=== PATIENT | female | born 1955 | race Caucasian/White ===

== ENCOUNTER 2020-10-28 15:16 | Outpatient (REF) | payer BC, SELFPAY ==
--- NOTE | ~2020-10-28 | MM_ITS ---
EXAMINATION: MM SCREENING DIGITAL BREAST TOMOSYNTHESIS, BILATERAL CLINICAL INFORMATION: Screening. Asymptomatic. The lifetime risk of breast cancer based on the Tyrer-Cuzick Model is 4%. COMPARISON: Mammography: 07/04/2019, 06/28/2018, 12/23/2017 TECHNIQUE: Digital breast tomosynthesis is performed in both the craniocaudal and mediolateral oblique views along with computer-aided detection (CAD). Synthesized 2D images are generated from the tomosynthesis. FINDINGS: The breasts are almost entirely fatty (ACR BI-RADS breast composition Category a). Background stromal markings are stable. There is no interval mass or architectural abnormality or abnormal calcifications. The axilla and skin contours are unremarkable. No significant changes. MM/MM tomosynthesis screening BI IMPRESSION: No mammographic evidence of malignancy. ASSESSMENT: BI-RADS 1: Negative RECOMMENDATION: Routine annual mammography screening. This patient's information was entered into a reminder system with a target due date for their next mammogram.
== END 2020-10-28 15:17 | disposition home or self-care (01) ==
LOC: HO.MAMMO 15:16
PROVIDERS: Visit Provider Internal Medicine
DX: Z12.31 Encounter for screening mammogram for malignant neoplasm of breast (principal)
CPT/HCPCS: 77063; 77067

== ENCOUNTER 2021-10-30 15:26 | Outpatient (REF) | payer BC, SELFPAY ==
--- NOTE | ~2021-10-30 | MM_ITS ---
EXAMINATION: MM SCREENING DIGITAL BREAST TOMOSYNTHESIS, BILATERAL CLINICAL INFORMATION: Screening. Asymptomatic. The lifetime risk of breast cancer based on the Tyrer-Cuzick Model is 4%. COMPARISON: Mammography: 10/28/2020, 07/04/2019, 06/28/2018 TECHNIQUE: Digital breast tomosynthesis is performed in both the craniocaudal and mediolateral oblique views along with computer-aided detection (CAD). Synthesized 2D images are generated from the tomosynthesis. Additional right MLO view is provided. FINDINGS: The breasts are almost entirely fatty (ACR BI-RADS breast composition Category a). There are no significant masses, abnormal calcifications, or other abnormalities. Background stromal markings are similar to prior studies. No developing density. The axilla are unremarkable. There are no significant changes. MM/MM tomosynthesis screening BI IMPRESSION: No mammographic evidence of malignancy. ASSESSMENT: BI-RADS 1: Negative RECOMMENDATION: Routine annual mammography screening. This patient's information was entered into a reminder system with a target due date for their next mammogram.
== END 2021-10-30 15:27 | disposition home or self-care (01) ==
LOC: HO.MAMMO 15:26
PROVIDERS: PCP Internal Medicine; Visit Provider Internal Medicine
DX: Z12.31 Encounter for screening mammogram for malignant neoplasm of breast (principal)
CPT/HCPCS: 77063; 77067

== ENCOUNTER 2021-11-07 07:50 | Outpatient (REF) | payer BC, SELFPAY ==
[2021-11-07 11:22] LABS: Alanine Aminotransferase 18 U/L (0-31); Albumin Level 4.2 g/dL (3.5-5.0); Alkaline Phosphatase 70 U/L (39-117); Anion Gap 17 (12-20); Aspartate Amino Transferase 20 U/L (5-31); Bilirubin Total 0.5 mg/dL (0.0-1.0); Blood Urea Nitrogen 12 mg/dL (9-16); Calcium 9.7 mg/dL (8.4-10.2); Carbon Dioxide 28 mmol/L (22-29); Chloride 100 mmol/L (96-108); Cholesterol 288 mg/dL; Estimated Glomerular Filt Rate > 60; Glucose Fasting 93 mg/dL (60-99); HDL Cholesterol 68 mg/dL; LDL Cholesterol Calculated 190 mg/dl; Potassium 3.7 mmol/L (3.3-5.1); Sodium 141 mmol/L (135-145); Total Protein 7.3 g/dL (6.5-8.0); Triglycerides 151 mg/dL
== END 2021-11-07 07:51 | disposition home or self-care (01) ==
LOC: HO.HMGCLDS 07:50
PROVIDERS: PCP Internal Medicine; Visit Provider Internal Medicine
DX: E78.2 Mixed hyperlipidemia (principal)
CPT/HCPCS: 36415; 80053; 80061

== ENCOUNTER 2021-11-09 15:33 | Outpatient (REF) | payer BC, SELFPAY ==
--- NOTE | ~2021-11-09 | XR_ITS ---
EXAMINATION: XR HAND, LEFT CLINICAL INFORMATION: Localized swelling, mass and lump left thumb COMPARISON: None TECHNIQUE: PA, lateral, and oblique views of the left hand. FINDINGS: The bones and soft tissues are normal. No fracture. Alignment is anatomic. Joint spaces are maintained. No erosions or soft tissue calcifications. XR/XR hand LT min 3V IMPRESSION: Normal left hand.
== END 2021-11-09 15:34 | disposition home or self-care (01) ==
LOC: HO.XRAY 15:33
PROVIDERS: PCP Internal Medicine; Visit Provider Internal Medicine
DX: R22.32 Localized swelling, mass and lump, left upper limb (principal)
CPT/HCPCS: 73130

== ENCOUNTER 2021-12-15 10:53 | Outpatient (REF) | payer BC, SELFPAY ==
--- NOTE | ~2021-12-15 | XR_ITS ---
EXAMINATION: XR HAND, LEFT CLINICAL INFORMATION: Pain COMPARISON: None TECHNIQUE: Four views of the left hand and left thumb. FINDINGS: No acute visible fracture or dislocation. Mild multi joint arthritic changes. Nonspecific calcific densities along the first proximal phalanx, possibly arthritic in origin. Joint spaces and alignment are otherwise maintained. Soft tissues are unremarkable. XR/XR hand LT min 3V IMPRESSION: 1. No acute visible fracture or dislocation. 2. Mild multi joint arthritic changes. 3. Nonspecific calcific densities along the first proximal phalanx, possibly arthritic in origin.
== END 2021-12-15 10:54 | disposition home or self-care (01) ==
LOC: HO.HOSX 10:53
PROVIDERS: Visit Provider Orthopaedic Surgery
DX: M79.642 Pain in left hand (principal)
CPT/HCPCS: 73130

== ENCOUNTER 2021-12-31 10:57 | Day surgery (SDC) | payer BC, SELFPAY ==
--- NOTE | 2021-12-31 10:00 | W.PM.OPN ---
Operative Note Operative Note Date of Service: 12/31/21 Narrative: Operative Note Preop diagnosis: 1. 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 same Procedure: 1. left thumb mucous cyst excision 2. left thumb DIP joint arthrotomy and excision of radial osteophyte. Surgeon: Sharmaine Lay MD Anesthesia: Digital block using 1% lidocaine with epinephrine Findings: mucous cyst, synovial rice bodies found and sent to pathology EBL: Less than 5 mL Tourniquet time: None Specimens: left thumb mucous cyst and synovial rice bodies Complications: None Disposition: Brought to recovery room in stable condition Plan: Follow-up for 7-10 days for wound check and suture removal Indications: The patient is 66 years old, with left thumb D IP joint osteoarthritis and dorsal thumb masses that have been unresponsive to nonoperative management. The risks and benefits of operative treatment including but not limited to risk of damage to blood vessels, nerves, tendons, infection, persistent pain, persistent symptoms, recurrence or possible need for additional surgery were discussed with the patient and the patient wishes to proceed with surgery. Procedure: Once consent was obtained a digital block was performed in the preop area using a combination of 1% lidocaine with epinephrine. The patient was then brought back to the operating suite and placed on the operative table in supine position. A tourniquet was applied to the proximal aspect of the left upper extremity and the limb was prepped and draped in a standard surgical fashion. A finger tourniquet was applied to the base of the thumb for few more than 30 minutes. Once assured that we had a good block, an L-shaped incision was made over the dorsal aspect of the left thumb distal phalanx. The incision was made through the skin to the subcutaneous tissues using a #15 blade. Careful dissection was made down to the level of the mucous cyst and extensor mechanism using iris scissors. there is a thickening of the tissues radial to the extensor tendon distal to the D IP joint, this also involved mucous cyst. This area was excised using a 15. Blade and tenotomy scissors. An arthrotomy was performed on the radial side of the extensor mechanism at the D IP joint. The periarticular osteophytes were excised using a rongeur. In addition to some clear viscous fluid consistent with a ganglion, once our arthrotomy was made we also removed some rice bodies associated with the synovium inside the D IP joint. This was also placed on the back table to be sent for histopathology. There was also a small mucous cyst just ulnar to the extensor tendon insertion. It was dissected free from the surrounding tissues and removed from the finger. Once satisfied, the wound was copiously irrigated with normal saline and hemostasis was obtained with a brief period of local pressure. The skin edges were reapproximated with some 5.0 Prolene suture material and a sterile dressing was applied. The patient appears to have tolerated the procedure well and with no complications. All digits were well vascularized at the conclusion of the case.
[2021-12-31 11:06] VITALS: BMI 31.2
[2021-12-31 11:10] VITALS: BP 152/74; PULSE 65; RESP 16; TEMP 36.4; O2SAT 97
[2021-12-31 14:06] VITALS: BP 161/84; PULSE 64; RESP 18; TEMP 37; O2SAT 98
== END 2021-12-31 14:31 | disposition home or self-care (01) ==
PROVIDERS: PCP Internal Medicine; Visit Provider Orthopaedic Surgery
PROC: (CPT 26160; principal; 2021-12-31 14:40)
DX: M67.442 Ganglion, left hand (principal); M24.0 Loose body in joint; K21.9 Gastro-esophageal reflux disease without esophagitis; F41.1 Generalized anxiety disorder; E78.5 Hyperlipidemia, unspecified; E66.9 Obesity, unspecified; Z68.31 Body mass index [BMI] 31.0-31.9, adult; Z87.891 Personal history of nicotine dependence; M19.042 Primary osteoarthritis, left hand
CPT/HCPCS: 26160; 88304; J0171

== ENCOUNTER 2022-11-09 07:30 | Outpatient (REF) | payer MEDICARE, SELFPAY ==
--- NOTE | ~2022-11-09 | MM_ITS ---
EXAMINATION: MM SCREENING DIGITAL BREAST TOMOSYNTHESIS, BILATERAL CLINICAL INFORMATION: Screening. Asymptomatic. The lifetime risk of breast cancer based on the Tyrer-Cuzick Model is 5%. COMPARISON: Mammography: 10/30/2021, 10/28/2020, 07/04/2019 TECHNIQUE: Digital breast tomosynthesis is performed in both the craniocaudal and mediolateral oblique views along with computer-aided detection (CAD). Synthesized 2D images are generated from the tomosynthesis. FINDINGS: The breasts are almost entirely fatty (ACR BI-RADS breast composition Category a). Background stromal markings are normal. No developing density or architectural abnormality. There are no significant masses, abnormal calcifications, or other abnormalities. The axilla and skin contours are unremarkable. MM/MM tomosynthesis screening BI IMPRESSION: No mammographic evidence of malignancy. ASSESSMENT: BI-RADS 1: Negative RECOMMENDATION: Routine annual mammography screening. This patient's information was entered into a reminder system with a target due date for their next mammogram.
== END 2022-11-09 07:31 | disposition home or self-care (01) ==
LOC: HO.MAMMO 07:30
PROVIDERS: PCP Internal Medicine; Visit Provider Internal Medicine
DX: Z12.31 Encounter for screening mammogram for malignant neoplasm of breast (principal)
CPT/HCPCS: 77063; 77067

== ENCOUNTER 2022-11-24 08:54 | Outpatient (REF) | payer MEDICARE, SELFPAY ==
[2022-11-24 12:12] LABS: Alanine Aminotransferase 23 U/L (0-31); Albumin Level 4.3 g/dL (3.5-5.0); Alkaline Phosphatase 68 U/L (39-117); Anion Gap 15 (12-20); Aspartate Amino Transferase 27 U/L (5-31); Bilirubin Total 0.5 mg/dL (0.0-1.0); Blood Urea Nitrogen 10 mg/dL (9-16); Calcium 10.3 mg/dL (8.4-10.2); Carbon Dioxide 29 mmol/L (22-29); Chloride 101 mmol/L (96-108); Cholesterol 287 mg/dL; Estimated Glomerular Filt Rate > 60; Glucose Fasting 101 mg/dL (60-99); HDL Cholesterol 67 mg/dL; LDL Cholesterol Calculated 173 mg/dl; Potassium 4.3 mmol/L (3.3-5.1); Sodium 141 mmol/L (135-145); Total Protein 7.6 g/dL (6.5-8.0); Triglycerides 236 mg/dL
== END 2022-11-24 08:55 | disposition home or self-care (01) ==
LOC: HO.HMGCLDS 08:54
PROVIDERS: PCP Internal Medicine; Visit Provider Internal Medicine
DX: E78.5 Hyperlipidemia, unspecified (principal); I10 Essential (primary) hypertension
CPT/HCPCS: 36415; 80053; 80061

== ENCOUNTER 2023-09-09 13:22 | Inpatient (IN) | payer MEDICARE, SELFPAY ==
--- NOTE | ~2023-09-09 | CT_ITS ---
EXAMINATION: CT abdomen pelvis w IV con CLINICAL INFORMATION: Reason for Exam upper abdominal pain COMPARISON: No prior CT available for comparison. TECHNIQUE: Multidetector volumetric imaging was performed from the superior aspect of the liver through the pubic symphysis 85 mL of Omnipaque 350 injected Sagittal and coronal reformatted images were obtained on the technologist's workstation. This CT examination was performed using dose optimization techniques as appropriate, variously including the following: *Automated exposure control *Adjustment of mA and/or kV according to patient size (this includes techniques or standardized protocols for targeted exams where dose is matched to indication/reason for exam; i.e. extremities or head) *Use of iterative reconstruction technique DLP: 581 mGy-cm FINDINGS: LOWER THORAX: Included lung bases are clear. HEPATOBILIARY: No focal hepatic lesions. No biliary ductal dilatation. GALLBLADDER: Gallbladder is distended, there are few gallstones. SPLEEN: Spleen is normal in size. PANCREAS: There is a peripancreatic fat stranding compatible with acute pancreatitis. No CT evidence of complication. No pseudocyst, aneurysm or thrombosis. STOMACH AND GASTROINTESTINAL TRACT: Stomach is grossly unremarkable. There is no bowel distention or thickening. No CT evidence of appendicitis. ADRENALS: No adrenal nodules. KIDNEYS/URETERS: No hydronephrosis, stones or solid mass lesions. URINARY BLADDER: Partially decompressed. PELVIC VISCERA: Unremarkable PERITONEUM: No free air or fluid. LYMPH NODES: No lymphadenopathy. VASCULAR:Abdominal aorta normal in size, no aneurysm found. BONES, ABDOMINAL WALL AND SOFT TISSUES: Degenerative osteoarthritic changes of the lumbar spine, symphysis pubis and hip joints. Age-appropriate changes of the spine and skeletal system, no destructive osteolytic or osteosclerotic bone lesion found CT/CT abdomen pelvis w IV con IMPRESSION: 1. Peripancreatic fat stranding compatible with ACUTE PANCREATITIS. No CT evidence of complication. 2. Distended gallbladder, small gallstones, Cholelithiasis.
--- NOTE | ~2023-09-09 | US_ITS ---
EXAMINATION: US ABDOMEN LIMITED CLINICAL INFORMATION: Pancreatitis, gallbladder stones on a recent CT. COMPARISON: CT abdomen/pelvis 09/09/2023. TECHNIQUE: Real-time imaging of the right upper quadrant abdominal viscera. FINDINGS: PANCREAS: Small amount of free fluid adjacent to the proximal pancreas. LIVER: Normal size, echogenicity and morphology. There is a 1.4 x 1.2 x 1.9 cm hypoechoic lesion in the left hepatic lobe. No intrahepatic biliary ductal dilatation. GALLBLADDER: Cholelithiasis. No evidence of gallbladder wall thickening. Negative Nance sign. COMMON BILE DUCT: Normal in caliber measuring 0.5 cm in diameter. FREE FLUID: As above, small amount of free fluid around the proximal pancreas. US/US abdomen limited IMPRESSION: 1. Small amount of free fluid surrounding the proximal pancreas in keeping with acute pancreatitis, better appreciated on recent CT. 2. Cholelithiasis but no evidence of acute cholecystitis. 3. Nonspecific 1.9 cm hypoechoic lesion in the left hepatic lobe. Recommend further characterization with outpatient dynamic abdominal MRI with and without intravenous contrast.
[2023-09-09 13:33] VITALS: BP 178/94; PULSE 85; RESP 18; TEMP 37; O2SAT 98; BMI 28.7
--- NOTE | 2023-09-09 13:34 | ED.GENADULT ---
HPI - General Adult General Chief complaint: General Medical Stated complaint: Upper Abd & Back Pain Time Seen by Provider: 09/09/23 16:02 Source: patient, RN notes reviewed and old records reviewed Mode of arrival: ambulatory Limitations: no limitations History of Present Illness HPI narrative: 68-year-old female with past medical history significant for hypertension, hyperlipidemia, GERD presents for evaluation of abdominal pain. Patient reports about 5 days of severe upper abdominal pain that radiates through to her back She reports the pain is worse when lying down She is unsure if the pain is related to eating because ?I have had no appetite and barely eaten in the last 3 days. ? She describes the pain as 7/10, stabbing in nature Patient denies any history abdominal surgeries Patient reports that about 1-1-1/2 weeks ago her primary doctor put her on hydrochlorothiazide 12.5 mg due to high blood pressure She is concerned this may have contributed to her symptoms Related Data Home Medications ?Medication ?Instructions ?Recorded ?Confirmed hydrochlorothiazide 12.5 mg tablet 12.5 mg DAILY 09/09/23 09/09/23 lisinopril 10 mg tablet 10 mg PO DAILY 09/09/23 09/09/23 omeprazole 40 mg capsule,delayed 40 mg DAILY 09/09/23 09/09/23 release polyethylene glycol 3350 17 17 g PO DAILY PRN Constipation 09/09/23 09/09/23 gram/dose oral powder Previous Rx's ?Medication ?Instructions ?Recorded sennosides 8.6 mg tablet (senna) 8.6 mg PO BEDTIME PRN constipation 11/09/21 90 days #90 tabs atorvastatin 10 mg tablet 10 mg PO BEDTIME 90 days #90 tabs 05/25/23 Allergies Allergy/AdvReac Type Severity Reaction Status Date / Time No Known Allergies Allergy Verified 09/09/23 13:35 Review of Systems Constitutional: Constitutional: Denies body ache(s), Denies chills and Denies fever(s) ENT: Denies sore throat Cardiovascular: Cardiovascular: Denies chest pain and Denies dyspnea Respiratory: Respiratory: Denies cough and Denies dyspnea Gastrointestinal: Gastrointestinal: Reports abdominal pain, Denies diarrhea, Reports nausea and Reports vomiting Genitourinary: Genitourinary: Denies dysuria Musculoskeletal: Musculoskeletal: Reports back pain Integumentary/Breasts: Skin/Breast: Denies rash PMFSH Past Medical History Medical History HTN (hypertension) Subcutaneous mass of left thumb Physical exam IGOR (generalized anxiety disorder) Class 1 obesity with body mass index (BMI) of 31.0 to 31.9 in adult Mixed hyperlipidemia Chronic GERD Surgical History History of tooth extraction Pilonidal cyst History of hysterectomy History of tonsillectomy Family History Family History Mother Diabetes Father Lung cancer, Onset Age: 76 Social History Social History Housing: House Alcohol intake: current Alcohol intake frequency: a few times a week Alcohol type: wine Patient Tobacco Use Status: Former Tobacco user Tobacco use type: Cigarette Smoked in Last 30 Days: No e-Cigarette/Vaping Use: Never Used Second Hand Smoke Exposure: No Use of substances other than those prescribed or required for medical reasons: No Advance Directives: No Advance Directives Information Provided: No Nutrition Risks: Acute nausea or vomiting x1 week and Poor intake 0-25% >4 days service: No Current occupational status: retired Current occupational exposures/hazards: No Cognitive needs: No Hearing needs: No Vision needs: No Physical Exam ED Vital Signs: Vital Signs - 24 hr 09/09/23 13:33 09/09/23 16:02 09/09/23 19:29 Temperature 98.6 F 98.1 F 98.2 F Pulse Rate 85 72 74 Respiratory Rate 18 14 14 Blood Pressure 178/94 H 157/82 H 143/79 H Pulse Oximetry 98 98 98 Oxygen Delivery Method Room Air Room Air Room Air BMI result Body Mass Index 28.7 Const General: healthy appearing, comfortable, no acute distress, alert and awake Nutritional Appearance: well nourished Orientation/consciousness: patient oriented x3 HENMT Head: Yes normocephalic and Yes atraumatic Eyes Eyelids: Yes eyelids normal Conjunctivae: conjunctivae normal Sclerae: sclerae normal Corneas: corneas normal Pupils: Equal, round and reactive pupils present EOM: EOMs intact bilaterally Neck Neck: Yes full ROM Resp Effort & Inspection: normal respiratory effort, able to speak in complete sentences and not labored Cardio Rate: regular rate Rhythm: regular rhythm GI Inspection: No distended Palpation (GI): Soft to palpation, not firm, Tenderness to palpation present (GI) in the epigastrum, in the RLQ and in the LUQ, no guarding and not rigid Auscultation: normoactive bowel sounds Skin General skin exam: elasticity normal Neuro General: patient oriented x3 Cranial nerves: Yes Equal, round and reactive pupils present and Yes Bilaterally intact EOM present Cognition (Neuro): normal cognition Extrem Other: Moving all extremities well without any obvious deformities Course Course Course Narrative: RME performed by Xiao Avalos PA-C. Patient is a 68 year old assigned female at presenting to the emergency department with epigastric and back pain. Detailed physical exam and review of systems are deferred to the steel erector. Labs and swabs ordered. Patient placed back in the waiting room pending room availability and results. Medications Administered Generic Name Dose Route Start Last Admin Trade Name Freq PRN Reason Stop Dose Admin Atorvastatin Calcium 10 mg 09/09/23 21:15 09/09/23 22:24 Atorvastatin Calcium 10 Mg Tablet PO 10 mg BEDTIME CONCHITA Administration Enoxaparin Sodium 40 mg 09/09/23 22:00 09/09/23 22:24 Enoxaparin Sodium 40 Mg/0.4 Ml Syringe SUBCUT 40 mg Q24H CONCHITA Administration Potassium Chloride/Dextrose/Sod Cl 40 meq in 1,000 mls @ 150 mls/hr 09/09/23 16:45 09/09/23 16:46 Kcl 40 Meq In 5% Dex/0.9% Sod IVCONT 150 mls/hr .Q6H40M CONCHITA Administration Lactated Ringer's 1,000 mls @ 100 mls/hr 09/09/23 21:15 09/09/23 22:18 Lr IVCONT Not Given .Q10H CONCHITA Discontinued Medications Generic Name Dose Route Start Last Admin Trade Name Freq PRN Reason Stop Dose Admin Magnesium Sulfate 2 gm in 50 mls @ 25 mls/hr 09/09/23 16:13 09/09/23 22:17 Magnesium Sulfate/H2o IV 09/09/23 18:12 Infused ONCE ONE Infusion Sodium Chloride 1,000 mls @ 999 mls/hr 09/09/23 20:15 09/09/23 21:17 Ns IV 09/09/23 21:15 Infused .Q1H1M CONCHITA Infusion Iohexol 100 ml 09/09/23 17:10 09/09/23 17:10 Iohexol 350 Mg/Ml 100 Ml Infus..Btl IV 09/09/23 17:11 85 ml ONCE ONE Administration Potassium Chloride 40 meq 09/09/23 21:12 09/09/23 22:24 Potassium Chloride Packet 20 Meq Packet PO 09/09/23 21:13 40 meq ONCE ONE Administration Medical Decision Making Medical Decision Making [facility] Narrative: 68-year-old female past medical history as documented above presents for evaluation of upper abdominal pain with decreased appetite over the last 5 days. She was started on hydrochlorothiazide about 7 days ago per her report. Given upper abdominal pain that radiates through to the back acute pancreatitis is high differential. However, also differential is biliary colic, cholelithiasis, acute cholecystitis, GERD, peptic ulcer disease, gastric perforation. Patient has a leukocytosis to 14.3 K with a left shift. She has a mild normocytic anemia. Denies any black or bloody stool. Most recent comparisons are from 4 years ago and this appears to be slightly below her most recent hemoglobin hematocrit 13.7 and 40.8. Again, this was from January of 2020. Chemistries are significant for sodium of 122, potassium 2.3, chloride of 74. She has further electrolyte abnormalities calcium 10.3 and magnesium of 1.2. This is likely due to decreased oral intake as well as diuretic use. Plan to treat the multiple electrolyte abnormalities with 40 mEq of IV potassium mixed and D5 NS to be given at 150 mL/hr Differential Diagnosis Differential Diagnoses: The differential diagnosis associated with the presentation includes See above Admission/Observation Consideration of admission/observation: Escalation of care including admission/observation considered Patient will likely require admission due to significant electrolyte abnormalities and inability tolerate p.o. Lab Data [facility] Lab Attestation statement: I reviewed the patient's lab results. See above, notably leukocytosis with left shift. Multiple electrolyte abnormalities 09/09/23 14:45 09/09/23 21:43 Labs: Lab Results 09/09/23 09/09/23 Range/Units 14:45 19:31 WBC 14.3 H (4.8-10.8) X10*3/uL RBC 3.80 L (4.20-5.50) X10*6/uL Hgb 11.8 L (12.0-16.0) g/dl Hct 31.7 L (37.0-47.0) % MCV 83.4 (80.0-98.0) fL MCH 31.1 (27.0-33.0) pg MCHC 37.2 H (31.0-35.0) g/dl RDW 11.1 (11.0-16.0) % Plt Count 276 (160-400) X10*3/uL MPV 8.0 L (9.4-12.3) fL Immature Gran % (Auto) 0.5 H (0.0-0.4) % Neut % (Auto) 77.8 H (45-73) % Lymph % (Auto) 13.5 L (20-40) % Branch % (Auto) 7.6 (2-11) % Eos % (Auto) 0.5 (0-4) % Baso % (Auto) 0.1 (0-2) % Lymph # (Auto) 1.9 (1.2-4.9) X10*3/uL Branch # (Auto) 1.1 (0.1-1.2) X10*3/uL Eos # (Auto) 0.1 (0.0-0.4) X10*3/uL Baso # (Auto) 0.0 (0.0-0.2) X10*3/uL Abs Immat Gran (auto) 0.07 H (0.00-0.03) X10*3/uL Absolute Neuts (auto) 11.1 H (2.0-8.3) x10*3/uL Absolute Nucleated RBC 0.000 (0.0-0.012) X10*3/uL Nucleated RBC % (auto) 0.0 (0.0-0.2) /100WBC Sodium 122 L (135-145) mmol/L Potassium 2.3 L* (3.3-5.1) mmol/L Chloride 74 L D (96-108) mmol/L Carbon Dioxide 36 H (22-29) mmol/L Anion Gap 14 (12-20) BUN 10 (9-16) mg/dL Creatinine 0.56 (0.5-1.4) mg/dL Estim Creat Clear Calc 84.2 Estimated GFR > 60 Random Glucose 88 (60-115) mg/dL Calcium 10.3 H (8.4-10.2) mg/dL Magnesium 1.2 L* (1.6-2.6) mg/dL Total Bilirubin 0.6 (0.0-1.0) mg/dL AST 28 (5-31) U/L ALT 19 (0-31) U/L Alkaline Phosphatase 85 (39-117) U/L Troponin I High Sens < 2.7 (<3.5-17.0) ng/L Total Protein 7.7 (6.5-8.0) g/dL Albumin 4.2 (3.5-5.0) g/dL Lipase 172 H (8-78) U/L Urine Color Yellow Urine Appearance Clear Urine pH 7.0 (5.0-9.0) Ur Specific [place] >= 1.030 H (1.005-1.025) Urine Protein Negative (Neg-Trace) mg/dL Urine Glucose (UA) Negative (Negative) mg/dL Urine Ketones 40 (Negative) mg/dL Urine Blood Negative (Negative) Urine Nitrite Negative (Negative) Ur Leukocyte Esterase Negative (Negative) Ethyl Alcohol < 10 mg/dL Influenza Type A (PCR) NEGATIVE (Negative) Influenza Type B (PCR) NEGATIVE (Negative) RSV RNA Qual (PCR) NEGATIVE (Negative) SARS-CoV-2 RNA (RT-PCR) NEGATIVE (Negative) Independent Interpretation I performed an independent interpretation of an: CT Scan (Agree with Radiology interpretation) Radiology Impression Discussion of test interpretation with radiology: I have reviewed the radiologist's reading. (Findings consistent with acute pancreatitis) Discharge Plan Discharge Clinical Impression: Acute hypokalemia, Hypomagnesemia, Acute hyponatremia, Acute pancreatitis Patient Disposition: Admitted As Inpatient
--- NOTE | 2023-09-09 13:35 | ECG_ITS ---
Test Reason : EPIGASTRIC PAIN Blood Pressure : / mmHG Vent. Rate : 078 BPM Atrial Rate : 078 BPM P-R Int : 178 ms QRS Dur : 098 ms QT Int : 380 ms P-R-T Axes : 044 -15 013 degrees QTc Int : 433 ms Normal sinus rhythm Incomplete right bundle branch block Moderate voltage criteria for LVH, may be normal variant ( R in aVL , John product ) Nonspecific ST abnormality Abnormal ECG No previous ECGs available Referred By: Xiao Avalos Electronically Signed By:CHARLIE NELSON MD
[2023-09-09 14:51] LABS: MANUAL DIFF FLAG NO
[2023-09-09 14:57] LABS: Basophils Percent Auto 0.1 % (0-2); Eosinophils Absolute Auto 0.1 X10*3/uL (0.0-0.4); Eosinophils Percent Auto 0.5 % (0-4); Hematocrit 31.7 % (37.0-47.0); Hemoglobin 11.8 g/dl (12.0-16.0); Imm Gran Abs Auto 0.07 X10*3/uL (0.00-0.03); Imm Gran Pct Auto 0.5 % (0.0-0.4); Lymphocytes Absolute Auto 1.9 X10*3/uL (1.2-4.9); Lymphocytes Percent Auto 13.5 % (20-40); Mean Corpuscular HGB Conc 37.2 g/dl (31.0-35.0); Mean Corpuscular Hemoglobin 31.1 pg (27.0-33.0); Mean Corpuscular Volume 83.4 fL (80.0-98.0); Monocytes Absolute Auto 1.1 X10*3/uL (0.1-1.2); Monocytes Percent Auto 7.6 % (2-11); Neutrophils Absolute Auto 11.1 x10*3/uL (2.0-8.3); Neutrophils Percent Auto 77.8 % (45-73); Platelet Count 276 X10*3/uL (160-400); Red Cell Distribution Width 11.1 % (11.0-16.0); White Blood Count 14.3 X10*3/uL (4.8-10.8)
[2023-09-09 15:22] LABS: Troponin-I High Sensitivity < 2.7 ng/L (<3.5-17.0)
[2023-09-09 15:37] LABS: Alanine Aminotransferase 19 U/L (0-31); Albumin Level 4.2 g/dL (3.5-5.0); Alkaline Phosphatase 85 U/L (39-117); Anion Gap 14 (12-20); Aspartate Amino Transferase 28 U/L (5-31); Bilirubin Total 0.6 mg/dL (0.0-1.0); Blood Urea Nitrogen 10 mg/dL (9-16); Calcium 10.3 mg/dL (8.4-10.2); Carbon Dioxide 36 mmol/L (22-29); Chloride 74 mmol/L (96-108); Creatinine Clr Calc Pharmacy 84.2; Estimated Glomerular Filt Rate > 60; Glucose Random 88 mg/dL (60-115); Magnesium 1.2 mg/dL (1.6-2.6); Potassium 2.3 mmol/L (3.3-5.1); Sodium 122 mmol/L (135-145); Total Protein 7.7 g/dL (6.5-8.0)
[2023-09-09 15:42] LABS: Influenza A PCR NEGATIVE (Negative); Influenza B PCR NEGATIVE (Negative); Resp Syncy Virus RNA Qual PCR NEGATIVE (Negative); SARS COV2 PCR INHOUSE NEGATIVE (Negative)
[2023-09-09 16:02] VITALS: BP 157/82; PULSE 72; RESP 14; TEMP 36.7; O2SAT 98
[2023-09-09] MEDS: Magnesium Sulfate/H2O 2 GM/50 ML PIGGYBACK IV (16:42)
[2023-09-09] MEDS: KCl 40 mEq in 5% Dex/0.9% Sod 40 MEQ/1,000 ML IV.SOLN 150 MEQ IVCONT (16:46)
[2023-09-09 16:53] LABS: Lipase 172 U/L (8-78)
[2023-09-09] MEDS: iohexoL 350 MG/ML 100 ML INFUS..BTL IV (17:10)
[2023-09-09 19:29] VITALS: BP 143/79; PULSE 74; RESP 14; TEMP 36.8; O2SAT 98
[2023-09-09 19:38] LABS: Color Urine Yellow; Glucose Urine UA Negative (Negative); Leukocyte Esterase Urine Negative (Negative); Nitrite Urine Negative (Negative); Specific Gravity - Urine >= 1.030 (1.005-1.025); Urine Blood Negative (Negative); Urine Ketones 40 mg/dL (Negative); Urine Protein Negative (Neg-Trace)
[2023-09-09 19:40] LABS: Appearance Urine Clear
[2023-09-09] MEDS: 0.9 % Sodium Chloride 1,000 ML 999 ML IV (20:16)
[2023-09-09 21:02] LABS: Ethanol < 10 mg/dL
--- NOTE | 2023-09-09 21:16 | PM.IMHP ---
History of Present Illness Date of Service: 09/09/23 Attending physician on admission: Willam Perez Chief Complaint: Abdominal pain Pt is a 68-year-old female with a PMH significant for?HTN, HLD, GERD, and chronic constipation who presents to the ED for evaluation of central, epigastric abdominal pain radiating to the back x5 days. Has had some nausea with one episode of vomiting a day or two after symptom onset. Pt has also had decreased p.o. intake of both fluids and solids, especially in the last 3 days. Pt admits to drinking 3-4 glasses of wine daily. Has never had similar symptoms before. Denies fever, chills. No chest pain/pressure or palpitations. Denies SOB. Pt recently started 1.5 weeks ago on hydrochlorothiazide for HTN by her PCP. Pt also notes had a long history of chronic constipation since childhood. He is also recently started polyethylene glycol and sennosides. Last bowel movement 5 days prior on Tuesday. In the ED pt was afebrile but slightly hypertensive up to 178/94, vitals otherwise WNL. Labs were significant for leukocytosis of 14.3, sodium 122, potassium 2.3, chloride 74, bicarb 36, magnesium 1.2, and lipase 172. UA negative for UTI. Ethyl alcohol level undetectable. CT?of abdomen and pelvis found peripancreatic fat stranding compatible with acute pancreatitis with no evidence of complication. Also found distended gallbladder with small gallstones. EKG demonstrated normal sinus rhythm without evidence of significant ST elevations or depressions. Pt was treated with magnesium sulfate, potassium chloride IV, and IVF. Pt will be admitted to the hospital for treatment and further evaluation of acute alcoholic pancreatitis and electrolyte abnormalities. Review of Systems Review of Systems: Epigastric abdominal pain radiating to back Nausea, vomiting Anorexia Chronic constipation Denies fever, chills No chest pain/pressure, palpitations Denies shortness of breath [facility] Medical History HTN (hypertension) Subcutaneous mass of left thumb Physical exam IGOR (generalized anxiety disorder) Class 1 obesity with body mass index (BMI) of 31.0 to 31.9 in adult Mixed hyperlipidemia Chronic GERD Family History Mother Diabetes Father Lung cancer, Onset Age: 76 Surgical History History of tooth extraction Pilonidal cyst History of hysterectomy History of tonsillectomy Social History Housing: House Alcohol intake: current Alcohol intake frequency: a few times a week Alcohol type: wine Patient Tobacco Use Status: Former Tobacco user Tobacco use type: Cigarette Smoked in Last 30 Days: No e-Cigarette/Vaping Use: Never Used Second Hand Smoke Exposure: No Use of substances other than those prescribed or required for medical reasons: No Advance Directives: No Advance Directives Information Provided: No service: No Current occupational status: retired Current occupational exposures/hazards: No Cognitive needs: No Hearing needs: No Vision needs: No Meds Allergies Allergy/AdvReac Type Severity Reaction Status Date / Time No Known Allergies Allergy Verified 09/09/23 13:35 Active Medications: Current Medications Acetaminophen (Acetaminophen 325 Mg Tablet) 650 mg PO Q6H PRN PRN Reason: Pain, Mild (Pain Scale 1-3) Atorvastatin Calcium (Atorvastatin Calcium 10 Mg Tablet) 10 mg PO BEDTIME [facility] Enoxaparin Sodium (Enoxaparin Sodium 40 Mg/0.4 Ml Syringe) 40 mg SUBCUT Q24H [facility] Potassium Chloride/Dextrose/Sod Cl (Kcl 40 Meq In 5% Dex/0.9% Sod) 40 meq in 1,000 mls @ 150 mls/hr IVCONT .Q6H40M [facility] Last Admin: 09/09/23 16:46 Dose: 150 mls/hr Lactated Ringer's (Lr) 1,000 mls @ 100 mls/hr IVCONT .Q10H [facility] Lisinopril (Lisinopril 10 Mg Tablet) 10 mg PO DAILY [facility]; Protocol Melatonin (Melatonin 3 Mg Tablet) 6 mg PO BEDTIME PRN PRN Reason: Insomnia Omeprazole (Omeprazole 40 Mg Capsule.Dr) 40 mg PO DAILY [facility] Ondansetron HCl (Ondansetron Hcl 4 Mg/2 Ml Vial) 4 mg IVPUSH Q8H PRN PRN Reason: Nausea and Vomiting Polyethylene Glycol (Polyethylene Glycol 3350 17 Gm Powd.Pack) 17 gm PO DAILY PRN PRN Reason: Constipation Senna (Sennosides 8.6 Mg Tablet) 8.6 mg PO BEDTIME PRN PRN Reason: constipation Sodium Chloride (0.9 % Sodium Chloride Flush 3 Ml Syringe) 3 ml IVFLUSH QSHIFT [facility] Home Medications ?Medication ?Instructions ?Recorded ?Confirmed ?Last Taken ?Type hydrochlorothiazide 12.5 mg tablet 12.5 mg DAILY 09/09/23 09/09/23 Unknown History lisinopril 10 mg tablet 10 mg PO DAILY 09/09/23 09/09/23 Unknown History omeprazole 40 mg capsule,delayed 40 mg DAILY 09/09/23 09/09/23 Unknown History release polyethylene glycol 3350 17 17 g PO DAILY PRN Constipation 09/09/23 09/09/23 Unknown History gram/dose oral powder Physical Exam Vital Signs and Narrative: Vital Signs: Last Vital Signs Temp 98.2 F 09/09/23 19:29 Pulse 74 09/09/23 19:29 Resp 14 09/09/23 19:29 BP 143/79 H 09/09/23 19:29 Pulse Ox 98 09/09/23 19:29 O2 Del Method Room Air 09/09/23 19:29 BMI result Body Mass Index 28.7 General: AOx3, no acute distress Resp: CTA bilaterally CVS: S1, S2, RRR GI: +BS, no distention, epigastric and LUQ tenderness Skin: Warm, dry Neuro: Cranial nerves II-XII grossly intact bilaterally. Motor grossly intact bilaterally Extremities: No edema Psych: Appropriate affect Results Labs 09/09/23 14:45 09/09/23 14:45 Labs: Laboratory Results - last 24 hr 09/09/23 09/09/23 14:45 19:31 MCV 83.4 MCH 31.1 MCHC 37.2 H RDW 11.1 Plt Count 276 MPV 8.0 L Immature Gran % (Auto) 0.5 H Neut % (Auto) 77.8 H Lymph % (Auto) 13.5 L [place] % (Auto) 7.6 Eos % (Auto) 0.5 Baso % (Auto) 0.1 Lymph # (Auto) 1.9 [place] # (Auto) 1.1 Eos # (Auto) 0.1 Baso # (Auto) 0.0 Abs Immat Gran (auto) 0.07 H Absolute Neuts (auto) 11.1 H Absolute Nucleated RBC 0.000 Nucleated RBC % (auto) 0.0 Anion Gap 14 Estim Creat Clear Calc 84.2 Estimated GFR > 60 Random Glucose 88 Calcium 10.3 H Magnesium 1.2 L* Total Bilirubin 0.6 AST 28 ALT 19 Alkaline Phosphatase 85 Troponin I High Sens < 2.7 Total Protein 7.7 Albumin 4.2 Lipase 172 H Urine Color Yellow Urine Appearance Clear Urine pH 7.0 Ur Specific [place] >= 1.030 H Urine Protein Negative Urine Glucose (UA) Negative Urine Ketones 40 Urine Blood Negative Urine Nitrite Negative Ur Leukocyte Esterase Negative Ethyl Alcohol < 10 Influenza Type A (PCR) NEGATIVE Influenza Type B (PCR) NEGATIVE RSV RNA Qual (PCR) NEGATIVE SARS-CoV-2 RNA (RT-PCR) NEGATIVE Imaging Radiologist's Impressions: Impressions Abdomen/Pelvis CT 09/09/23 17:15 IMPRESSION: 1. Peripancreatic fat stranding compatible with ACUTE PANCREATITIS. No CT evidence of complication. 2. Distended gallbladder, small gallstones, Cholelithiasis. Assessment and Plan (1) Acute pancreatitis: Status: Acute (2) Acute hyponatremia: Status: Acute (3) Hypomagnesemia: Status: Acute (4) Acute hypokalemia: Status: Acute Plan Pt is a 68-year-old female with a PMH significant for?HTN, HLD, GERD, and chronic constipation who presents to the ED for evaluation of central, epigastric abdominal pain radiating to the back x5 days. Pt will be admitted to the hospital for treatment and further evaluation of acute alcoholic pancreatitis and electrolyte abnormalities. Acute pancreatitis Patient with central abdominal pain radiating to back, elevated lipase, CT with evidence of acute pancreatitis Likely secondary to alcohol use Patient with long history of at least 3-4 glasses of wine daily Patient be made NPO, given IVF, analgesics for pain management Monitor on CIWA Alcohol cessation has been encouraged Advance diet as tolerated Hyponatremia Sodium 122 time of presentation Likely secondary to reduced p.o. intake, recently starting hydrochlorothiazide Patient receiving IVF Hold hydrochlorothiazide Follow BMP Hypokalemia Potassium 2.3 time presentation Likely secondary to reduced p.o. intake, recently starting hydrochlorothiazide Patient received IV potassium supplementation in ED Will give potassium chloride p.o. Hold hydrochlorothiazide Follow BMP, supplement as necessary Hypomagnesemia Magnesium 1.2 at time of presentation Likely secondary to reduced p.o. intake, recently starting hydrochlorothiazide Patient received Mag 2 g IV in ED Hold hydrochlorothiazide Follow BMP, supplement as necessary Leukocytosis Likely reactionary No evidence of bacterial infection, no indication for antibiotics at this time Follow CBC HTN Continue lisinopril Hold hydrochlorothiazide HLD Continue statin GERD Continue PPI Chronic constipation Continue polyethylene glycol and sennosides p.r.n. Full Code Attending:?Dr. Marcum DVT Prophylaxis: Lovenox Pt will require a hospitalization of at least two nights for treatment of?acute alcoholic pancreatitis and multiple electrolyte abnormalities. Patient will require hospitalization for bowel rest, IV hydration, close monitoring of electrolytes, and supplementation has indicated. Quality Stroke Does the patient have a stroke diagnosis?: No VTE Prior VTE?: No VTE Risk Level:: Medical - moderate - high VTE Device Contraindication: Treatment Not Indicated VTE Drug Contraindication: N/A - Med Ordered
--- NOTE | 2023-09-09 21:21 | PHA.MEDREC ---
Pharmacy Consult ? Medication Reconciliation Pharmacy has completed the medication reconciliation.
[2023-09-09 22:01] VITALS: BP 142/75; PULSE 72; RESP 14; TEMP 36.8; O2SAT 99
[2023-09-09 22:03] LABS: Anion Gap 16 (12-20); Blood Urea Nitrogen 6 mg/dL (9-16); Calcium 10.1 mg/dL (8.4-10.2); Carbon Dioxide 31 mmol/L (22-29); Chloride 83 mmol/L (96-108); Creatinine Clr Calc Pharmacy 79.9; Estimated Glomerular Filt Rate > 60; Glucose Random 88 mg/dL (60-115); Magnesium 2.5 mg/dL (1.6-2.6); Potassium 2.4 mmol/L (3.3-5.1); Sodium 128 mmol/L (135-145)
[2023-09-09] MEDS: Enoxaparin Sodium 40 MG/0.4 ML SYRINGE SUBCUT (22:24)
[2023-09-09] MEDS: Potassium Chloride Packet 20 MEQ PACKET 40 MEQ PO (22:24)
[2023-09-09] MEDS: Atorvastatin Calcium 10 MG TABLET PO (22:24)
[2023-09-10] VITALS (8 sets, daily range): BP systolic 117–164; BP diastolic 68–86; PULSE 67–82; RESP 12–19; TEMP 36–36.7; O2SAT 95–99
[2023-09-10] MEDS: Acetaminophen 325 MG TABLET 650 MG PO (02:23)
[2023-09-10] MEDS: Melatonin 3 MG TABLET 6 MG PO (02:23)
[2023-09-10 05:59] LABS: Hematocrit 31.7 % (37.0-47.0); Hemoglobin 11.6 g/dl (12.0-16.0); Mean Corpuscular HGB Conc 36.6 g/dl (31.0-35.0); Mean Corpuscular Volume 84.8 fL (80.0-98.0); Mean Platelet Volume 8.2 fL (9.4-12.3); Platelet Count 316 X10*3/uL (160-400); Red Blood Count 3.74 X10*6/uL (4.20-5.50); Red Cell Distribution Width 11.3 % (11.0-16.0); White Blood Count 10.8 X10*3/uL (4.8-10.8)
[2023-09-10 06:16] LABS: Anion Gap 16 (12-20); Blood Urea Nitrogen 5 mg/dL (9-16); Calcium 9.7 mg/dL (8.4-10.2); Carbon Dioxide 28 mmol/L (22-29); Chloride 89 mmol/L (96-108); Creatinine Clr Calc Pharmacy 78.5; Estimated Glomerular Filt Rate > 60; Glucose Random 86 mg/dL (60-115); Magnesium 2.2 mg/dL (1.6-2.6); Potassium 3.1 mmol/L (3.3-5.1); Sodium 130 mmol/L (135-145)
[2023-09-10] MEDS: Sennosides 8.6 MG TABLET PO (07:35)
[2023-09-10] MEDS: Omeprazole 40 MG CAPSULE.DR PO (07:35)
--- NOTE | 2023-09-10 08:34 | PC.NURSE ---
assumed care of pt at 0700. pt a&o x4, calm, and cooperative. pt initially grumpy due to broken TV in pt room. pt moved to new room with working TV and in much better mood. pt on bedside monitor, NSR. 20G IV to RAC, patent. KCL running per aug. due to pt movement, IV keeps pausing thus delaying complete infusion. pt medicated per aug with senna due to constipation and no BM x1 week. pt sts this is normal for her. pt otherwise NPO. ultrasound complete. pt resting quietly on stretcher in no apparent distress. rr even/unlabored. awaiting bed assignment. call duncan within reach. plan of care ongoing.
[2023-09-10] MEDS: Lactated Ringers 1,000 ML 100 ML IVCONT ×2 (08:50→18:41)
[2023-09-10 09:13] LABS: Alanine Aminotransferase 16 U/L (0-31); Alkaline Phosphatase 83 U/L (39-117); Aspartate Amino Transferase 20 U/L (5-31); Bilirubin Direct 0.2 mg/dL (0.0-0.5); Bilirubin Total 0.5 mg/dL (0.0-1.0); Lactate Dehydrogenase 175 U/L (122-220); Lipase 76 U/L (8-78); Total Protein 7.5 g/dL (6.5-8.0); Triglycerides 85 mg/dL (<150)
[2023-09-10] MEDS: lisinopriL 10 MG TABLET PO (09:57)
[2023-09-10] MEDS: KCl 40 mEq in 5% Dex/0.9% Sod 40 MEQ/1,000 ML IV.SOLN 150 MEQ IVCONT (13:27)
--- NOTE | 2023-09-10 15:11 | P.PNIM_ITS ---
Subjective Subjective Date of Service: 09/10/23 Interval History: seen and examined this morning follow up for pancreatitis still with epigastric abdominal pain no nausea or vomiting Review of Systems Review of Systems: Yes all other systems are reviewed and are negative Constitutional Constitutional: Denies chills and Denies fever(s) Cardiovascular Cardiovascular: Denies chest pain, Denies palpitations and Denies dyspnea Respiratory Respiratory: Denies cough and Denies dyspnea Endocrine Endocrine: Denies palpitations Physical Exam 2 Vital Signs: Vital Signs: Last Vital Signs Temp 96.8 F 09/10/23 13:53 Pulse 68 09/10/23 13:53 Resp 14 09/10/23 13:53 BP 145/78 H 09/10/23 13:53 Pulse Ox 98 09/10/23 13:53 O2 Del Method Room Air 09/10/23 13:53 BMI result Body Mass Index 28.7 Const: General: cooperative, comfortable, no acute distress, alert and awake Nutritional Appearance: average body habitus Orientation/consciousness: p atient oriented x3 Resp: Effort & Inspection: normal respiratory effort, able to speak in complete sentences, no respiratory distress and no use of accessory muscles Cardio: Rate: regular rate GI: Other: Epigastric tenderness, positive bowel sounds, no guarding, no rebound, no distention Palpation (GI): Soft to palpation Neuro: General: patient oriented x3, moves all extremities and CN's II-XI intact bilaterally Objective Data Active Medications Acetaminophen (Acetaminophen 325 Mg Tablet) 650 mg PO Q6H PRN PRN Reason: Pain, Mild (Pain Scale 1-3) Last Admin: 09/10/23 02:23 Dose: 650 mg Documented By: KASEY Atorvastatin Calcium (Atorvastatin Calcium 10 Mg Tablet) 10 mg PO BEDTIME [facility] Last Admin: 09/09/23 22:24 Dose: 10 mg Documented By: KASEY Enoxaparin Sodium (Enoxaparin Sodium 40 Mg/0.4 Ml Syringe) 40 mg SUBCUT Q24H [facility] Last Admin: 09/09/23 22:24 Dose: 40 mg Documented By: KASEY Lactated Ringer's (Lr) 1,000 mls @ 100 mls/hr IVCONT .Q10H [facility] Last Admin: 09/10/23 08:50 Dose: 100 mls/hr Documented By: MARY Potassium Chloride/Dextrose/Sod Cl (Kcl 40 Meq In 5% Dex/0.9% Sod) 40 meq in 1,000 mls @ 150 mls/hr IVCONT .Q6H40M [facility] Last Admin: 09/10/23 13:27 Dose: 150 mls/hr Documented By: MARY Lisinopril (Lisinopril 10 Mg Tablet) 10 mg PO DAILY [facility]; Protocol Last Admin: 09/10/23 09:57 Dose: 10 mg Documented By: MARY Melatonin (Melatonin 3 Mg Tablet) 6 mg PO BEDTIME PRN PRN Reason: Insomnia Last Admin: 09/10/23 02:23 Dose: 6 mg Documented By: KASEY Morphine Sulfate (Morphine Sulfate 2 Mg/Ml Cartridge) 2 mg IVPUSH Q4H PRN; Protocol PRN Reason: Pain, Severe (Pain Scale 7-10) Omeprazole (Omeprazole 40 Mg Capsule.Dr) 40 mg PO DAILY@0630 [facility] Last Admin: 09/10/23 07:35 Dose: 40 mg Documented By: MARY Ondansetron HCl (Ondansetron Hcl 4 Mg/2 Ml Vial) 4 mg IVPUSH Q8H PRN PRN Reason: Nausea and Vomiting Polyethylene Glycol (Polyethylene Glycol 3350 17 Gm Powd.Pack) 17 gm PO DAILY PRN PRN Reason: Constipation Senna (Sennosides 8.6 Mg Tablet) 8.6 mg PO BEDTIME PRN PRN Reason: constipation Last Admin: 09/10/23 07:35 Dose: 8.6 mg Documented By: MARY Sodium Chloride (0.9 % Sodium Chloride Flush 3 Ml Syringe) 3 ml IVFLUSH QSHIFT [facility] Last Admin: 09/10/23 07:18 Dose: Not Given Documented By: MARY Non-Admin Reason: Med Not Available Labs 09/10/23 05:53 09/10/23 05:53 Labs: Laboratory Results - last 24 hr 09/09/23 09/09/23 09/09/23 14:45 19:31 21:43 MCV MCH MCHC RDW Plt Count MPV Absolute Nucleated RBC Nucleated RBC % (auto) Anion Gap 14 16 Estim Creat Clear Calc 84.2 79.9 Estimated GFR > 60 > 60 Random Glucose 88 88 Calcium 10.3 H 10.1 Magnesium 1.2 L* 2.5 Total Bilirubin 0.6 Direct Bilirubin AST 28 ALT 19 Alkaline Phosphatase 85 Lactate Dehydrogenase Troponin I High Sens < 2.7 Total Protein 7.7 Albumin 4.2 Triglycerides Lipase 172 H Urine Color Yellow Urine Appearance Clear Urine pH 7.0 Ur Specific [place] >= 1.030 H Urine Protein Negative Urine Glucose (UA) Negative Urine Ketones 40 Urine Blood Negative Urine Nitrite Negative Ur Leukocyte Esterase Negative Ethyl Alcohol < 10 Influenza Type A (PCR) NEGATIVE Influenza Type B (PCR) NEGATIVE RSV RNA Qual (PCR) NEGATIVE SARS-CoV-2 RNA (RT-PCR) NEGATIVE 09/10/23 05:53 MCV 84.8 MCH 31.0 MCHC 36.6 H RDW 11.3 Plt Count 316 MPV 8.2 L Absolute Nucleated RBC 0.000 Nucleated RBC % (auto) 0.0 Anion Gap 16 Estim Creat Clear Calc 78.5 Estimated GFR > 60 Random Glucose 86 Calcium 9.7 Magnesium 2.2 Total Bilirubin 0.5 Direct Bilirubin 0.2 AST 20 ALT 16 Alkaline Phosphatase 83 Lactate Dehydrogenase 175 Troponin I High Sens Total Protein 7.5 Albumin 4.0 Triglycerides 85 Lipase 76 Urine Color Urine Appearance Urine pH Ur Specific [place] Urine Protein Urine Glucose (UA) Urine Ketones Urine Blood Urine Nitrite Ur Leukocyte Esterase Ethyl Alcohol Influenza Type A (PCR) Influenza Type B (PCR) RSV RNA Qual (PCR) SARS-CoV-2 RNA (RT-PCR) Assessment and Plan (1) Acute pancreatitis: Status: Acute (2) Acute hyponatremia: Status: Acute (3) Acute hypokalemia: Status: Acute Plan This is a 68-year-old female with a PMH significant for?HTN, HLD, GERD, and chronic constipation who presents to the ED for evaluation of central, epigastric abdominal pain radiating to the back x5 days found to have acute pancreatitis Acute pancreatitis Likely secondary to alcohol use. TG low; ct scan shows gallstones, but no cbd dilation, LFTs all wnl continue IVF, pain medication Monitor on Alcohol cessation has been encouraged Advance diet as tolerated Hyponatremia. improving Likely secondary to reduced p.o. intake, recently starting hydrochlorothiazide continue IVF Hold hydrochlorothiazide Follow BMP Hypokalemia Likely secondary to reduced p.o. intake, recently starting hydrochlorothiazide s/p IV and PO potassium Hold hydrochlorothiazide Follow BMP, supplement as necessary Hypomagnesemia resolved with replacement Leukocytosis due to pancreatitis. resolved. HTN Continue lisinopril Hold hydrochlorothiazide HLD Continue statin GERD Continue PPI Chronic constipation Continue polyethylene glycol and sennosides p.r.n. Full Code Attending:?Dr. Grier DVT Prophylaxis: Lovenox Patient requires ongoing inpatient hospitalization for management of acute pancreatitis Quality Stroke Does the patient have a stroke diagnosis?: No VTE Prior VTE?: No VTE Risk Level:: Medical - moderate - high VTE Device Contraindication: Treatment Not Indicated VTE Drug Contraindication: N/A - Med Ordered
--- NOTE | 2023-09-10 16:45 | PC.NURSE ---
pt has ambulated to bathroom on own multiple times to urinate throughout day. pt sts still has not had a BM even though medicated with senna per mar.
[2023-09-10] MEDS: Atorvastatin Calcium 10 MG TABLET PO (19:56)
[2023-09-10] MEDS: polyethylene glycoL 3350 17 GM POWD.PACK PO (20:01)
[2023-09-10] MEDS: Enoxaparin Sodium 40 MG/0.4 ML SYRINGE SUBCUT (22:28)
[2023-09-11] MEDS: Lactated Ringers 1,000 ML 100 ML IVCONT (03:33)
[2023-09-11 03:37] VITALS: BP 147/73; PULSE 56; RESP 16; TEMP 36.4; O2SAT 97
[2023-09-11] MEDS: Omeprazole 40 MG CAPSULE.DR PO (05:58)
[2023-09-11 07:28] VITALS: BP 127/78; PULSE 69; RESP 18; TEMP 36.4; O2SAT 98
[2023-09-11] MEDS: lisinopriL 10 MG TABLET PO (08:50)
--- NOTE | 2023-09-11 10:43 | P.DS_ITS ---
DS: Providers Provider Date of Service: 09/11/23 Date of admission: 09/09/23 21:06 Date of discharge: 09/11/23 Primary care physician: Mary Tao MD Attending physician on discharge: [facility] Discharging clinician: Crystal Del Angel DS: Diagnosis Discharge Diagnosis (1) Acute pancreatitis: Status: Acute (2) Acute hyponatremia: Status: Acute (3) Acute hypokalemia: Status: Acute DS: Summary Hospital Course Hospital Course: From H&P on the day of admission Pt is a 68-year-old female with a PMH significant for?HTN, HLD, GERD, and chronic constipation who presents to the ED for evaluation of central, epigastric abdominal pain radiating to the back x5 days. Has had some nausea with one episode of vomiting a day or two after symptom onset. Pt has also had decreased p.o. intake of both fluids and solids, especially in the last 3 days. Pt admits to drinking 3-4 glasses of wine daily. Has never had similar symptoms before. Denies fever, chills. No chest pain/pressure or palpitations. Denies SOB. Pt recently started 1.5 weeks ago on hydrochlorothiazide for HTN by her PCP. Pt also notes had a long history of chronic constipation since childhood. He is also recently started polyethylene glycol and sennosides. Last bowel movement 5 days prior on Tuesday. In the ED pt was afebrile but slightly hypertensive up to 178/94, vitals otherwise WNL. Labs were significant for leukocytosis of 14.3, sodium 122, potassium 2.3, chloride 74, bicarb 36, magnesium 1.2, and lipase 172. UA negative for UTI. Ethyl alcohol level undetectable. CT?of abdomen and pelvis found peripancreatic fat stranding compatible with acute pancreatitis with no evidence of complication. Also found distended gallbladder with small gallstones. EKG demonstrated normal sinus rhythm without evidence of significant ST elevations or depressions. Pt was treated with magnesium sulfate, potassium chloride IV, and IVF. Pt will be admitted to the hospital for treatment and further evaluation of acute alcoholic pancreatitis and electrolyte abnormalities. Acute pancreatitis Likely secondary to alcohol use. TG low; ct scan shows gallstones, but no cbd dilation no RUQ pain, LFTs all within normal limits. TG 85. She as treated with bowel rest, IVF, pain medication. Her pain gradually improved and her diet was gradually advanced. She is currently tolerating a regular diet. She was monitored on the CIWA scale and showed no evidence of alcohol withdrawal. Limiting alcohol intake was discussed. Hyponatremia. Likely secondary to reduced p.o. intake, recently starting hydrochlorothiazide. HCTZ was placed on hold. Sodium improved. Hypokalemia Likely secondary to reduced p.o. intake, recently starting hydrochlorothiazide. She was treated with IV and PO potassium. Hold hydrochlorothiazide. Improved with replacement Hypomagnesemia resolved with replacement HTN HCTZ was stopped due to above electrolyte abnormalities. dose of lisinopril increased to 20 mg Time Attestation Discharge Coordination Time (in mins): 35 Quality: Safe Use of Opioids Does Pt have an Active Cancer Diagnosis on the Problem List?: No Quality: Stroke Does the patient have a stroke diagnosis?: No Physical Exam Vital Signs: Vital Signs: Last Vital Signs Temp 97.6 F 09/11/23 07:28 Pulse 69 09/11/23 07:28 Resp 18 09/11/23 07:28 BP 127/78 09/11/23 07:28 Pulse Ox 98 09/11/23 07:28 O2 Del Method Room Air 09/11/23 07:28 BMI result Body Mass Index 28.7 Const: General: cooperative, comfortable, no acute distress, alert and awake Nutritional Appearance: average body habitus Orientation/consciousness: patient oriented x3 Resp: Effort & Inspection: normal respiratory effort, able to speak in complete sentences, no respiratory distress and no use of accessory muscles Cardio: Rate: regular rate GI: Inspection: No distended Palpation (GI): Soft to palpation, nontender and no guarding Neuro: General: patient oriented x3, moves all extremities and CN's II-XI intact bilaterally Extrem: General: Yes no pedal edema DS: Data Data Completed and Pending Labs on day of discharge: Laboratory Results - last 24 hr 09/11/23 06:03 Hold Purple Top SEE NOTE Discharge Plan Discharge Anticipated Discharge Date/Time: 09/11/23 15:36 Patient Disposition: Home, Self-Care Discharge Diagnosis: acute pancreatitis Hyponatremia, hypokalemia, hypomagnesemia Referrals: Mayr Tao MD [Primary Care Provider] - 1 Week Discharge Medications: New lisinopril 20 mg tablet 20 mg PO DAILY 90 Days Qty: 90 0RF Continued atorvastatin 10 mg tablet 10 mg PO BEDTIME 90 Days Qty: 90 1RF omeprazole 40 mg capsule,delayed release(DR/EC) 40 mg DAILY polyethylene glycol 3350 17 gram/dose powder 17 g PO DAILY PRN (Reason: Constipation) sennosides [senna] 8.6 mg tablet 8.6 mg PO BEDTIME PRN (Reason: constipation) 90 Days Qty: 90 0RF Discontinued lisinopril 10 mg tablet 10 mg PO DAILY hydrochlorothiazide 12.5 mg tablet 12.5 mg DAILY Discharge Orders: Discharge Order (Routine); Ordered 09/11/23 Ordered By: Crystal Del Angel Activity on Discharge: As tolerated Stand Alone Forms: Patient Portal Discharge page Print Language: Turkish Care Plan Goals: see below Health Concerns: acute pancreatitis low sodium, low magnesium, low potassium Plan of Treatment: Electrolyte abnormalities resolved with replacement Stop taking HCTZ dose of lisinopril has been increased reduce alcohol intake follow up with PCP Assessment: see discharge summary
[2023-09-11 11:08] VITALS: BP 146/74; PULSE 68; RESP 18; TEMP 36.3; O2SAT 99
[2023-09-11 11:20] LABS: Anion Gap 13 (12-20); Blood Urea Nitrogen 3 mg/dL (9-16); Calcium 9.8 mg/dL (8.4-10.2); Carbon Dioxide 24 mmol/L (22-29); Chloride 98 mmol/L (96-108); Creatinine Clr Calc Pharmacy 81.3; Estimated Glomerular Filt Rate > 60; Glucose Random 102 mg/dL (60-115); Potassium 2.8 mmol/L (3.3-5.1); Sodium 132 mmol/L (135-145)
[2023-09-11] MEDS: Potassium Chloride/H20 10 MEQ/100 ML PIGGYBACK 100 MEQ IV ×2 (11:45→12:57)
[2023-09-11] MEDS: Potassium Chloride Packet 20 MEQ PACKET 60 MEQ PO (12:00)
[2023-09-11] MEDS: 0.9 % Sodium Chloride Flush 3 ML SYRINGE IVFLUSH (15:05)
--- NOTE | 2023-09-11 15:26 | MHC.CM.PN ---
PT REPORTS SHE LIVES WITH HER AND IS INDEPENDENT SHE HAS NO DME AND NO SERVICES PT SAYS SHE HAS A HCP AT HOME NAMING HER HER AGENT, COPY REQUESTED PCP: MICKIE CABALLERO DELIVERED DCP: HOME NO SERVICES VIA PRIVATE TRANSPORT
[2023-09-11 15:34] LABS: Potassium 4.5 mmol/L (3.3-5.1)
== END 2023-09-11 15:55 | disposition home or self-care (01) | DRG 439 ==
LOC: HO.ED 20:12 → HO.EDOVER 21:24 → HO.IMC 09-10 15:16
PROVIDERS: Internal Medicine; Physician Assistant; Physician Assistant Medical; Admitting Provider Student in an Organized Health Care Education/Training Program; Emergency Provider Emergency Medicine; PCP Internal Medicine; Visit Provider Physician Assistant Medical
DX: K85.20 Alcohol induced acute pancreatitis without necrosis or infection (principal); E87.1 Hypo-osmolality and hyponatremia; I10 Essential (primary) hypertension; K21.9 Gastro-esophageal reflux disease without esophagitis; K59.09 Other constipation; E78.2 Mixed hyperlipidemia; E83.42 Hypomagnesemia; E87.6 Hypokalemia; T50.2X5A Adverse effect of carbonic-anhydrase inhibitors, benzothiadiazides and other diuretics, initial encounter; Z20.822 Contact with and (suspected) exposure to COVID-19; Z79.899 Other long term (current) drug therapy
CPT/HCPCS: 0241U; 36415; 74177; 76705; 80048; 80053; 80076; 80307; 81003; 83615; 83690; 83735; 84132; 84478; 84484; 85025; 85027; 93005; 99285; J1650; J3475; J3480; J7120; Q9967

== ENCOUNTER → 2023-09-09 13:35 | Outpatient (BNV) | payer MEDICARE, SELFPAY | PROVIDERS: PCP Internal Medicine; Visit Provider Internal Medicine Cardiovascular Disease | DX: R94.31 Abnormal electrocardiogram [ECG] [EKG] (principal) | CPT/HCPCS: 93010 ==

== ENCOUNTER → 2023-09-09 21:06 | Outpatient (BNV) | payer MEDICARE, SELFPAY | PROVIDERS: Admitting Provider Student in an Organized Health Care Education/Training Program; Emergency Provider Emergency Medicine; PCP Internal Medicine; Visit Provider Physician Assistant Medical | DX: K85.90 Acute pancreatitis without necrosis or infection, unspecified (principal); E87.1 Hypo-osmolality and hyponatremia; E87.6 Hypokalemia | CPT/HCPCS: 99223; 99232; 99239 ==

== ENCOUNTER 2023-11-15 07:16 | Outpatient (REF) | payer MEDICARE, SELFPAY ==
--- NOTE | ~2023-11-15 | MM_ITS ---
EXAMINATION: MM SCREENING DIGITAL BREAST TOMOSYNTHESIS, BILATERAL CLINICAL INFORMATION: Screening. Asymptomatic. COMPARISON: Mammography: This study is compared with prior exams dating back to 2020. TECHNIQUE: Digital breast tomosynthesis is performed in both the craniocaudal and mediolateral oblique views along with computer-aided detection (CAD). Synthesized 2D images are generated from the tomosynthesis. FINDINGS: The breasts are almost entirely fatty (ACR BI-RADS breast composition Category a). There are no significant masses, abnormal calcifications, or other abnormalities. MM/MM tomosynthesis screening BI IMPRESSION: No mammographic evidence of malignancy. ASSESSMENT: BI-RADS BI-RADS 1 - Negative RECOMMENDATION: Routine annual mammography screening. 1 year F/U This examination should not preclude the clinical evaluation of a suspicious palpable abnormality. This patient's information was entered into a reminder system with a target due date for their next mammogram.
== END 2023-11-15 07:17 | disposition home or self-care (01) ==
LOC: HO.MAMMO 07:16
PROVIDERS: PCP Internal Medicine; Visit Provider Internal Medicine
DX: Z12.31 Encounter for screening mammogram for malignant neoplasm of breast (principal)
CPT/HCPCS: 77063; 77067

== ENCOUNTER → 2023-11-15 07:30 | Outpatient (BNV) | payer MEDICARE, SELFPAY | PROVIDERS: PCP Internal Medicine; Visit Provider Radiology Diagnostic Radiology | DX: Z12.31 Encounter for screening mammogram for malignant neoplasm of breast (principal) | CPT/HCPCS: 77063; 77067 ==

== ENCOUNTER 2023-12-01 09:50 | Outpatient (REF) | payer MEDICARE, SELFPAY ==
[2023-12-01 14:46] LABS: Cholesterol 161 mg/dL (<200); HDL Cholesterol 69 mg/dL (>40); LDL Cholesterol Calculated 80 mg/dL (<100); Triglycerides 63 mg/dL (<150)
== END 2023-12-01 09:51 | disposition home or self-care (01) ==
LOC: HO.CHCLDS 09:50
PROVIDERS: Visit Provider Internal Medicine
DX: E78.00 Pure hypercholesterolemia, unspecified (principal)
CPT/HCPCS: 36415; 80061

== ENCOUNTER 2023-12-05 09:58 | Outpatient (REF) | payer MEDICARE, SELFPAY ==
[2023-12-06 07:43] LABS: ~HepC Num1 0.09 S/CO (0.00-0.79); ~Hepatitis C Antibody Nonreactive (Nonreactive)
== END 2023-12-05 09:59 | disposition home or self-care (01) ==
LOC: HO.CHCLDS 09:58
PROVIDERS: Visit Provider Internal Medicine
DX: Z00.00 Encounter for general adult medical examination without abnormal findings (principal)
CPT/HCPCS: 36415; 86803

== ENCOUNTER 2024-11-20 07:22 | Outpatient (REF) | payer MEDICARE, SELFPAY | END 2024-11-20 07:23 | disposition home or self-care (01) | LOC: HO.MAMMO 07:22 | PROVIDERS: PCP Internal Medicine; Visit Provider Internal Medicine | DX: Z12.31 Encounter for screening mammogram for malignant neoplasm of breast (principal) | CPT/HCPCS: 77063; 77067 ==

== ENCOUNTER → 2024-11-20 07:30 | Outpatient (BNV) | payer MEDICARE, SELFPAY | PROVIDERS: PCP Internal Medicine; Visit Provider Internal Medicine | DX: Z12.31 Encounter for screening mammogram for malignant neoplasm of breast (principal) | CPT/HCPCS: 77063; 77067 ==

== ENCOUNTER 2025-04-08 08:11 | Outpatient (AMB) | payer MEDICARE, SELFPAY ==
--- NOTE | 2025-04-08 08:17 | MHC.OFFWIV ---
Intake Vital Signs 04/08/25 08:21 Height 5 ft Weight 138 lb BMI 26.9 BP 144/88 H Blood Pressure Location Rt brachial Position Sitting Pulse 68 Pulse Source Pulse Oximeter Temp 97.9 F Temp Source Oral Pulse Oximetry (%) 96 Oxygen Delivery Method Room Air Intake Visit Reasons: EP cough/chest cold 3 weeks Intake Note: Patient presents c/o chest congestion, SOB/wheezing, cough x3 weeks Patient Tobacco Use Status: Former Tobacco user Allergies No Known Allergies Allergy (Verified 04/08/25 08:22) Medication List - Last Reconciled 04/08/25 by Sabrina Arroyo NP atorvastatin 10 mg PO BEDTIME 90 days azithromycin 500 mg PO DAILY 3 days benzonatate 100 mg PO BID lisinopril 20 mg PO DAILY 90 days omeprazole 40 mg PO DAILY 90 days polyethylene glycol 3350 17 grams PO DAILY PRN prednisone 50 mg PO DAILY 5 days sennosides (senna) 8.6 mg PO BEDTIME PRN 90 days Do you need a note to return to daycare/school/sports/work: No HPI HPI Comments History of Present Illness Details 70 y/o female patient presents to the walk-in clinic with complaints of chest congestion, cough, and shortness of breath/wheezing for the past 3 weeks. Reports taking OTC remedies without relief. Denies any recent sick contacts. Denies fever, chills, nausea, or vomiting. Denies any history of COPD or asthma. [facility] Medical History (Updated 04/08/25 @ 08:45 by Sabrina Arroyo NP) Wheezy bronchitis HTN (hypertension) Subcutaneous mass of left thumb Physical exam IGOR (generalized anxiety disorder) Class 1 obesity with body mass index (BMI) of 31.0 to 31.9 in adult Mixed hyperlipidemia Chronic GERD Surgical History History of tooth extraction Pilonidal cyst History of hysterectomy History of tonsillectomy Family History Mother Diabetes Father Lung cancer, Onset Age: 76 Social History Household Members: Spouse Housing: House Do you presently have visiting nurse or other home services: No Alcohol intake: current Alcohol intake frequency: a few times a week Alcohol type: wine Patient Tobacco Use Status: Former Tobacco user Tobacco use type: Cigarette e-Cigarette/Vaping Use: Never Used Second Hand Smoke Exposure: No service: No Current occupational status: retired Current occupational exposures/hazards: No Cognitive needs: No Hearing needs: No Vision needs: No Review of Systems Const All systems reviewed & are unremarkable except as noted in HPI and below Physical Exam Vital Signs: Last Vital Signs Temp 97.9 F 04/08/25 08:21 Pulse 68 04/08/25 08:21 BP 144/88 H 04/08/25 08:21 Pulse Ox 96 04/08/25 08:21 Oxygen Delivery Method Room Air 04/08/25 08:21 BMI result Body Mass Index 26.9 Const General: no acute distress Nutritional Appearance: overweight Orientation/consciousness: patient oriented x3 HEENT Head: Yes normocephalic Ears: external ears normal and TM abnormal bulging and with fluid behind the TM bilateral General nose exam: Abnormal mucous membranes and turbinates present erythematous Face and sinus: Yes sinuses nontender Mouth: moist mucous membranes Throat: Yes uvula midline Resp Effort & Inspection: normal respiratory effort and Actively coughing Quality: productive Auscultation: no crackles, no rales, rhonchi and wheezes scattered wheezes Cardio Heart sounds: S1 normal heart sound present and S2 normal heart sound present Neuro General: patient oriented x3, gait normal and moves all extremities Psych Speech and movement: Normal speech and movement present Office Procedures Nebulizer Treatment Nebulizer Treatment [id number]/[id number] RX initial, or Nebulizer Subsequent Treatment Office Meds ipratropium 0.5 mg-albuterol 3 mg (2.5 mg base)/3 mL nebulization soln Performing Provider: Sabrina Arroyo NP Performing Location[place] [facility] [place] Administered by: Sabrina Arroyo NP on 04/08/25 09:00 Dose Route Admin Location Dispensed Lot Number Expiration Date [facility] Supervisor Steno Pool 3 mL inhalation 3 mL Assessment & Plan Assessment & Plan (1) Wheezy bronchitis: Code(s): J40 - Bronchitis, not specified as acute or chronic Plan: Acute bronchitis vs. upper respiratory infection Consider atypical pneumonia or reactive airway disease Ordered Chest Xray to r/o Pneumonia. Ordered Neb in the office. Ordered Z-pack and prednisone. Symptomatic treatment: increase fluids, rest, humidifier use, OTC expectorant (e.g., guaifenesin). Orders: Orders XR chest 2V Today J40 - Bronchitis, not specified as acute or chronic AMB Nebulizer Treatment Today J40 - Bronchitis, not specified as acute or chronic Medications: New prednisone 50 mg PO DAILY 5 tabs 0RF 5 days J40 - Bronchitis, not specified as acute or chronic azithromycin 500 mg PO DAILY 3 tabs 0RF 3 days J40 - Bronchitis, not specified as acute or chronic benzonatate 100 mg PO BID 60 caps 0RF cough J40 - Bronchitis, not specified as acute or chronic Coding Level of Care Code Est Pt Level 4 (12174) Diagnoses Wheezy bronchitis J40 CPT Codes Nebulizer Treatment - Nebulizer Treatment, initial or subsequent: [id number] RX initial, or Nebulizer Subsequent Treatment ([id number]) Time Spent (min) 20
[2025-04-08 08:21] VITALS: BP 144/88; PULSE 68; TEMP 36.6; O2SAT 96; BMI 26.9
== END 2025-04-08 09:05 | disposition home or self-care (01) ==
PROVIDERS: PCP Internal Medicine; Visit Provider Nurse Practitioner Family
DX: J40 Bronchitis, not specified as acute or chronic (principal)

== ENCOUNTER 2025-04-08 08:11 | Outpatient (REF) | payer MEDICARE, SELFPAY ==
--- NOTE | ~2025-04-08 | XR_ITS ---
EXAMINATION: XR CHEST 2 VIEWS HISTORY: J40 - Bronchitis, not specified as acute or chronic COMPARISON: Comparison is made with the prior examination dated to 61. FINDINGS: PA and lateral views of the chest are submitted. There is linear scarring in the lingula. The lungs are otherwise clear. There is mild degenerative disc disease of the spine. There is no pleural effusion, pneumothorax, or pulmonary vascular congestion. The heart is normal in size. The bones are intact. XR/XR chest 2V IMPRESSION: No acute cardiopulmonary abnormality. Electronically signed by: Stephon Luevano MD 04/08/2025 09:05 AM ELIUD
== END 2025-04-08 08:12 | disposition home or self-care (01) ==
LOC: HO.HMGCX 08:11
PROVIDERS: PCP Internal Medicine; Visit Provider Nurse Practitioner Family
DX: J40 Bronchitis, not specified as acute or chronic (principal); Z79.899 Other long term (current) drug therapy; Z87.891 Personal history of nicotine dependence; Z79.52 Long term (current) use of systemic steroids
CPT/HCPCS: 71046; 94640; 99212

== ENCOUNTER → 2025-04-08 08:49 | Outpatient (BNV) | payer MEDICARE, SELFPAY | PROVIDERS: PCP Internal Medicine; Visit Provider Radiology Diagnostic Radiology | DX: J40 Bronchitis, not specified as acute or chronic (principal) | CPT/HCPCS: 71046 ==